=== PATIENT | female | born 1990 | race Caucasian/White ===

== ENCOUNTER 2018-06-04 12:55 | Emergency (ER) | payer OTHER ==
--- NOTE | 2018-06-04 13:29 | ER Report ---
History and Physical Time Seen By MD: 13:29 Hx. of Stated Complaint: vaginal bleeding HPI/ROS at 11 weeks by dates presents to the emergency department with 1 episode of spotting today. Also with one episode of cramping. Symptoms have resolved. No recent trauma or drug use. No fever chills. No previous ectopic. Allergies: Coded Allergies: No Known Allergies (Verified Allergy, Unknown, 06/04/18) Home Meds No Active Prescriptions or Reported Meds Constitutional Vital Sign - Last 24 Hours 06/04/18 06/04/18 06/04/18 06/04/18 12:55 13:03 13:06 13:15 Temp 98.8 Pulse 78 92 Resp 13 B/P (MAP) 119/78 (92) 119/78 90/75 (80) Pulse Ox 95 98 O2 Delivery Room Air 06/04/18 06/04/18 06/04/18 06/04/18 13:25 13:30 13:45 13:55 Pulse 77 85 B/P (MAP) 98/59 (72) 97/76 (83) Pulse Ox 96 98 06/04/18 06/04/18 06/04/18 06/04/18 14:00 14:15 14:30 14:35 Pulse 81 86 92 B/P (MAP) 99/73 (82) 97/61 (73) 94/68 (77) Pulse Ox 99 97 97 06/04/18 06/04/18 15:30 15:35 Pulse 114 B/P (MAP) 91/68 (76) Pulse Ox 100 Physical Exam General Appearance: The patient is alert, has no immediate need for airway protection and no current signs of toxicity. Eyes: Pupils equal and round no injection. Respiratory: Chest is non tender, lungs are clear to auscultation. Cardiac: regular rate and rhythm Gastrointestinal: Abdomen is soft and non tender, no masses, bowel sounds normal. : No blood in vaginal vault, OS closed Extremities have full range of motion and are non tender. Skin: No rashes or lesions. Medical Decision Making Data Points Result Diagram: 06/04/18 1341 06/04/18 1341 Laboratory Hematology Test 06/04/18 13:00 06/04/18 13:41 Urine Color Yellow Urine Clarity Clear Urine pH 5.0 pH (4.8-9.5) Urine Specific [place] 1.026 Urine Protein Negative mg/dL (NEGATIVE) Urine Glucose (UA) Negative mg/dL (NEGATIVE) Urine Ketones 20 mg/dL (NEGATIVE) Urine Blood Large (NEGATIVE) Urine Nitrite Negative (NEGATIVE) Urine Bilirubin Negative (NEGATIVE) Urine Urobilinogen Negative mg/dL (0.2-1.9) Urine Leukocyte Esterase Negative (NEGATIVE) Urine RBC 1 /HPF (0-2/HPF) Urine WBC 1 /HPF (0-5/HPF) Urine Squamous Epithelial Cells Moderate /LPF (</=FEW) Urine Bacteria Negative /HPF (NONE-FEW) Urine Mucus None /HPF (NONE-FEW) Urine HCG, Qualitative Positive (NEGATIVE) Red Blood Count 4.74 M/uL (4.17-5.56) Mean Corpuscular Volume 94.7 fL (80.0-96.0) Mean Corpuscular Hemoglobin 32.3 pg (26.0-33.0) Mean Corpuscular Hemoglobin Concent 34.2 g/dL (32.0-36.0) Red Cell Distribution Width 13.1 % (11.5-14.5) Mean Platelet Volume 8.3 fL (7.2-11.1) Neutrophils (%) (Auto) 70.0 % (39.4-72.5) Lymphocytes (%) (Auto) 22.0 % (17.6-49.6) Monocytes (%) (Auto) 5.7 % (4.1-12.4) Eosinophils (%) (Auto) 1.6 % (0.4-6.7) Basophils (%) (Auto) 0.7 % (0.3-1.4) Nucleated RBC Relative Count (auto) 0.0 /100WBC Neutrophils # (Auto) 6.9 K/uL (2.0-7.4) Lymphocytes # (Auto) 2.2 K/uL (1.3-3.6) Monocytes # (Auto) 0.6 K/uL (0.3-1.0) Eosinophils # (Auto) 0.2 K/uL (0.0-0.5) Basophils # (Auto) 0.1 K/uL (0.0-0.1) Nucleated RBC Absolute Count (auto) 0.00 K/uL Sodium Level 135 mmol/L (137-145) Potassium Level 3.3 mmol/L (3.5-5.0) Chloride Level 103 mmol/L (98-107) Carbon Dioxide Level 21 mmol/L (22-31) Blood Urea Nitrogen 15 mg/dl (7-18) Creatinine 0.60 mg/dl (0.52-1.04) Glomerular Filtration Rate Calc > 60.0 Random Glucose 120 mg/dl (75-110) Calcium Level 9.4 mg/dl (8.4-10.2) Total Bilirubin 0.3 mg/dl (0.2-1.3) Aspartate Amino Transf (AST/SGOT) 24 U/L (0-35) Alanine Aminotransferase (ALT/SGPT) 20 U/L (0-56) Alkaline Phosphatase 44 U/L (0-126) Total Protein 8.3 g/dl (6.3-8.2) Albumin 4.2 g/dl (3.5-5.0) Human Chorionic Gonadotropin, Quant 87439 mIU/ml Chemistry Test 06/04/18 13:00 06/04/18 13:41 Urine Color Yellow Urine Clarity Clear Urine pH 5.0 pH (4.8-9.5) Urine Specific [place] 1.026 Urine Protein Negative mg/dL (NEGATIVE) Urine Glucose (UA) Negative mg/dL (NEGATIVE) Urine Ketones 20 mg/dL (NEGATIVE) Urine Blood Large (NEGATIVE) Urine Nitrite Negative (NEGATIVE) Urine Bilirubin Negative (NEGATIVE) Urine Urobilinogen Negative mg/dL (0.2-1.9) Urine Leukocyte Esterase Negative (NEGATIVE) Urine RBC 1 /HPF (0-2/HPF) Urine WBC 1 /HPF (0-5/HPF) Urine Squamous Epithelial Cells Moderate /LPF (</=FEW) Urine Bacteria Negative /HPF (NONE-FEW) Urine Mucus None /HPF (NONE-FEW) Urine HCG, Qualitative Positive (NEGATIVE) White Blood Count 9.9 k/uL (4.5-11.0) Red Blood Count 4.74 M/uL (4.17-5.56) Hemoglobin 15.3 g/dL (12.0-16.0) Hematocrit 44.8 % (34.0-47.0) Mean Corpuscular Volume 94.7 fL (80.0-96.0) Mean Corpuscular Hemoglobin 32.3 pg (26.0-33.0) Mean Corpuscular Hemoglobin Concent 34.2 g/dL (32.0-36.0) Red Cell Distribution Width 13.1 % (11.5-14.5) Platelet Count 239 K/uL (150-450) Mean Platelet Volume 8.3 fL (7.2-11.1) Neutrophils (%) (Auto) 70.0 % (39.4-72.5) Lymphocytes (%) (Auto) 22.0 % (17.6-49.6) Monocytes (%) (Auto) 5.7 % (4.1-12.4) Eosinophils (%) (Auto) 1.6 % (0.4-6.7) Basophils (%) (Auto) 0.7 % (0.3-1.4) Nucleated RBC Relative Count (auto) 0.0 /100WBC Neutrophils # (Auto) 6.9 K/uL (2.0-7.4) Lymphocytes # (Auto) 2.2 K/uL (1.3-3.6) Monocytes # (Auto) 0.6 K/uL (0.3-1.0) Eosinophils # (Auto) 0.2 K/uL (0.0-0.5) Basophils # (Auto) 0.1 K/uL (0.0-0.1) Nucleated RBC Absolute Count (auto) 0.00 K/uL Glomerular Filtration Rate Calc > 60.0 Calcium Level 9.4 mg/dl (8.4-10.2) Total Bilirubin 0.3 mg/dl (0.2-1.3) Aspartate Amino Transf (AST/SGOT) 24 U/L (0-35) Alanine Aminotransferase (ALT/SGPT) 20 U/L (0-56) Alkaline Phosphatase 44 U/L (0-126) Total Protein 8.3 g/dl (6.3-8.2) Albumin 4.2 g/dl (3.5-5.0) Human Chorionic Gonadotropin, Quant 02328 mIU/ml Urinalysis Test 06/04/18 13:00 Urine Color Yellow Urine Clarity Clear Urine pH 5.0 pH (4.8-9.5) Urine Specific [place] 1.026 Urine Protein Negative mg/dL (NEGATIVE) Urine Glucose (UA) Negative mg/dL (NEGATIVE) Urine Ketones 20 mg/dL (NEGATIVE) Urine Blood Large (NEGATIVE) Urine Nitrite Negative (NEGATIVE) Urine Bilirubin Negative (NEGATIVE) Urine Urobilinogen Negative mg/dL (0.2-1.9) Urine Leukocyte Esterase Negative (NEGATIVE) Urine RBC 1 /HPF (0-2/HPF) Urine WBC 1 /HPF (0-5/HPF) Urine Squamous Epithelial Cells Moderate /LPF (</=FEW) Urine Bacteria Negative /HPF (NONE-FEW) Urine Mucus None /HPF (NONE-FEW) Urine HCG, Qualitative Positive (NEGATIVE) ED Course/Re-evaluation ED Course Small sub chorionic hemorrhage noted on US. IUP with good FHTs noted otherwise. Os closed. No blood in the vaginal vault. No pain. Precautions given as to pelvic rest. Patient will follow-up with Dr. Katz this coming Monday. Decision to Disposition Date: Jun 04, 2018 Decision to Disposition Time: 16:02 Depart Departure Latest Vital Signs Vital Signs Date Time Temp Pulse Resp B/P (MAP) Pulse Ox O2 Delivery O2 Flow Rate FiO2 06/04/18 15:35 114 100 06/04/18 15:30 91/68 (76) 06/04/18 13:06 98.8 13 Room Air Impression: Primary Impression: Threatened miscarriage Condition: Improved Disposition: HOME OR SELF-CARE New Scripts No Active Prescriptions or Reported Meds Patient Instructions: Threatened Miscarriage (ED) MOE CRAIG MD Jun 04, 2018 13:29
[2018-06-04] MEDS ORDERED: NS(*) 0.9% 1000 ML BAG 1,000 ML IV ONE (13:40)
[2018-06-04 13:50] LABS: PLATELET COUNT, AUTOMATED 239 K/uL (150-450)
[2018-06-04 15:30] VITALS: BP 91/68
--- NOTE | 2018-06-04 15:57 | RADIOLOGY IMAGING REPORT ---
FACILITY: [facility] PATIENT NAME: Hannah Amador : 1990 MR: [id number] V: [id number] EXAM DATE: ORDERING PHYSICIAN: MOE CRAIG TECHNOLOGIST: [place] [facility] [place]: Hannah Amador : 1990 Visit/Account:[id number] Date of Sevice: 06/04/2018 EXAMINATION: Transvaginal first trimester OB ultrasound HISTORY: Vaginal bleeding. COMPARISON: None. LMP: 03/19/2018, 11 weeks and 0 days. JOE by LMP: 12/24/2018. FINDINGS: Exam is positive for a single live intrauterine . A gestational sac, yolk sac, and po le are visualized. [place]-rump length measures 4.13 cm, corresponding with a gestational age of 11 we eks and 1 day. cardiac activity is visualized at 165 bpm. Small sliver of subchorionic hemorrhage along the inferior margin of the gestational sac, measuring a pproximately 1.6 x 0.9 cm. Normal size and appearance of both ovaries. The right ovary measures 2.5 x 2.2 x 1.2 cm; the left ova ry 2.7 x 2.5 x 1.9 cm. Both ovaries demonstrate normal vascularity with Doppler. No abnormal adnexal mass is visualized. No free fluid in the pelvis. IMPRESSION: 1. Single live intrauterine . 2. [place]-rump length corresponds with a gestational age of 11 weeks and 1 day, which correlates well with the reported LMP. 3. heart rate 165 bpm. 4. Small sliver of subchorionic hemorrhage along the inferior margin of the gestational sac. 5. Unremarkable adnexa. No free fluid in the pelvis. Report Dictated By: Obdulio Pitt MD at 06/04/2018 3:49 PM Report E-Signed By: Obdulio Pitt MD at 06/04/2018 3:52 PM WSN:[email or web address]
== END 2018-06-04 16:11 | disposition home or self-care (01) ==
LOC: ER 13:38
DX: O20.0 Threatened abortion (principal); Z3A.11 11 weeks gestation of pregnancy
CPT/HCPCS: 76817; 81001; 81025; 84702; 85025; 86900; 86901; 96360; 99284; J7030; 82040; 82247; 82310; 82374; 82435; 82565; 82947; 84075; 84132; 84155; 84295; 84450; 84460; 84520

== ENCOUNTER → 2018-06-08 | Outpatient (CLI) | payer OTHER ==
[~2018-06-08] MED LIST: CALC-515 PO; DIPH-740 PO; PREN-127 PO
[2018-06-08 11:01] LABS: PLATELET COUNT, AUTOMATED 233 K/uL (150-450)
== END ==
LOC: LAB 08:04
PROVIDERS: ATTEND Obstetrics & Gynecology
DX: Z34.91 Encounter for supervision of normal pregnancy, unspecified, first trimester (principal)
CPT/HCPCS: 36415; 81001; 85025; 86592; 86703; 86762; 86850; 86900; 86901; 87088; 87340

== ENCOUNTER → 2018-06-21 | Outpatient (CLI) | payer OTHER | LOC: LAB 08:08 | PROVIDERS: ATTEND Student in an Organized Health Care Education/Training Program | DX: Z34.91 Encounter for supervision of normal pregnancy, unspecified, first trimester (principal) | CPT/HCPCS: 87491; 87591 ==

== ENCOUNTER → 2018-08-09 | Outpatient (CLI) | payer OTHER ==
--- NOTE | 2018-08-09 09:32 | RADIOLOGY IMAGING REPORT ---
FACILITY: [facility] PATIENT NAME: Hannah Amador : 1990 MR: [id number] V: [id number] EXAM DATE: ORDERING PHYSICIAN: VINITA FARR TECHNOLOGIST: Location: [facility] Patient: Hannah Amador : 1990 Visit/Account:[id number] Date of Sevice: 08/09/2018 [facility] [place] ANATOMICAL SURVEY HISTORY: anatomical COMPARISON: None FINDINGS: Intrauterine gestations: 1 presentation: Breech heart rate: 153 bpm Amniotic fluid volume: ZHANNA 16.5 cm; Largest amniotic fluid pocket 5.5 cm Placenta: Anterior right lateral No placenta previa or retroplacental hemorrhage. Uterus: Gravid, otherwise normal Maternal adnexa: Negative Cervix: 3.1. Closed Gestational Parameters: BPD: 4.9 cm; 21 weeks/ 0 days 70% HC: 17.5 cm; 20 weeks/ 1 days 25% AC: 16.6 cm; 21 weeks/ 5 days 81% FL: 3.4 cm; 20 weeks/ 6 days 55% Average ultrasound age (AUA): 21 weeks/ 0 days Estimated weight (EFW): 401 grams +/- 59 grams. Fetus is in the 82nd percentile based on LMP Anatomic Survey: Intracranial structures, 4-chamber heart, stomach, kidneys, urinary bladder, spine, 3-vessel cord and cord insertion are unremarkable. Two upper and two lower extremities visualized. IMPRESSION: IUP of 21 weeks zero days. JOE of 12/20/2018. This correlates four days ahead of the LMP JOE of 019 Report Dictated By: Brandt Covarrubias MD at 08/09/2018 9:18 AM Report E-Signed By: Brandt Covarrubias MD at 08/09/2018 9:27 AM WSN:[email or web address]
== END ==
LOC: RAD 07:49
PROVIDERS: ATTEND Student in an Organized Health Care Education/Training Program
DX: Z02.9 Encounter for administrative examinations, unspecified (principal)

== ENCOUNTER → 2018-10-01 | Outpatient (CLI) | payer OTHER ==
[~2018-10-01] MED LIST changes: +OSE75 PO
[2018-10-01 10:17] LABS: PLATELET COUNT, AUTOMATED 190 K/uL (150-450)
== END ==
LOC: LAB 07:53
PROVIDERS: ATTEND Student in an Organized Health Care Education/Training Program
DX: Z34.92 Encounter for supervision of normal pregnancy, unspecified, second trimester (principal)
CPT/HCPCS: 36415; 82950; 85025

== ENCOUNTER → 2018-10-05 | Outpatient (CLI) | payer OTHER | LOC: LAB 08:27 | PROVIDERS: ATTEND Student in an Organized Health Care Education/Training Program | DX: O99.810 Abnormal glucose complicating pregnancy (principal) | CPT/HCPCS: 36415; 82951; 82952 ==

== ENCOUNTER → 2018-11-29 | Outpatient (CLI) | payer OTHER ==
[~2018-11-29] MED LIST changes: +DIPH0.5S2 IM
== END ==
LOC: LAB 09:16
PROVIDERS: ATTEND Student in an Organized Health Care Education/Training Program
DX: Z36.85 Encounter for antenatal screening for Streptococcus B (principal)
CPT/HCPCS: 87081

== ENCOUNTER 2018-12-15 09:47 | Inpatient (IN) | payer OTHER ==
[~2018-12-15] VITALS: Ht 162.6 cm; Wt 86.2 kg
[2018-12-15 10:00] VITALS: BP 146/79; Ht 162.6 cm; Wt 86.2 kg
[2018-12-15] MEDS ORDERED: FAMOTIDINE(*) 20MG/50ML PREMIX 50 ML IVPB PRN (11:06)
[2018-12-15] MEDS ORDERED: OXYTOCIN 30 UNIT/NS 500 ML 500 ML IV PRN ×3 (11:06→11:18)
[2018-12-15] MEDS ORDERED: LIDOCAINE/SOD BICARB 8.4% SYR SC PRN (11:10)
[2018-12-15] MEDS ORDERED: METOCLOPRAMIDE 10 MG/2 ML SDV IVP PRN (11:10)
[2018-12-15] MEDS ORDERED: LIDOCAINE 1% LOCAL 300 MG/30ML INJ PRN (11:10)
[2018-12-15] MEDS ORDERED: FLUSH 10 ML SYR IVP PRN (11:10)
[2018-12-15] MEDS ORDERED: FENTANYL/ROPIVACAINE 100 ML BAG EPI PRN (11:15)
[2018-12-15] MEDS ORDERED: LIDOCAINE/PF 2% 200MG/10ML AMP 200 MG/10 ML AMPUL EPI PRN (11:15)
[2018-12-15] MEDS ORDERED: BUPIVACAINE 0.5% INJ 30ML VIAL EPI PRN (11:15)
[2018-12-15] MEDS ORDERED: fentaNYL CITR 100 MCG/2 ML AMP IT PRN (11:15)
[2018-12-15] MEDS ORDERED: BUPIVACAINE 0.25% MPF INJ EPI PRN (11:15)
[2018-12-15] MEDS ORDERED: LIDO/EPI 2% MPF 1:200,000 20ML EPI PRN (11:15)
[2018-12-15 12:00] LABS: PLATELET COUNT, AUTOMATED 133 K/uL (150-450)
[2018-12-15] MEDS: LR(*) 1000 ML BAG 1,000 ML IV SCH ×3 (12:22→22:34)
[2018-12-15] MEDS ORDERED: ONDANSETRON 4 MG/2 ML VIAL ONE (20:27)
[2018-12-15] MEDS ORDERED: ePHEDrine 25 MG/5 ML DISP.SYR IVP ONE (20:28)
[2018-12-15] MEDS ORDERED: ONDANSETRON 4 MG/2 ML VIAL IVP PRN (21:11)
[2018-12-15] MEDS ORDERED: ACETAMINOPHEN 500 MG TAB PO PRN (21:11)
--- NOTE | 2018-12-15 21:16 | Anesthesia OB Pre-Anes Eval ---
History of Present Illness Anesthesia Start Date: Dec 15, 2018 Anesthesia Start Time: 20:33 OB Anesthesia Diagnosis: spontaneous labor EDC: Dec 24, 2018 : 1 Para: 0 Vital Signs: Vital Signs Date Time Temp Pulse Resp B/P (MAP) Pulse Ox O2 Delivery O2 Flow Rate FiO2 12/15/18 10:00 99.9 92 18 146/79 (101) 95 Room Air Pain Ratin Result Diagram: 12/15/18 1143 Height (Inches): 64.00 Weight (Pounds): 190 Past Medical History Medical History: other (Hx of opioid addiction/abuse.) Surgical History: no surgical history Attended Childbirth Classes?: No Hx Anesthesia Reactions: No Hx Family Anesthesia Reaction: No Current Medications: pitocin Home Meds Reported Medications Calcium Carbonate (TUMS) 200 Mg Tab.chew, 200 MG PO, TAB.CHEW 06/08/18 Vits W-Ca,Fe,Fa(<1MG) ( VITAMINS) 1 Each Tablet, 1 EACH PO DAILY, TAB 06/08/18 Allergies: Coded Allergies: No Known Allergies (Verified Allergy, Unknown, 06/04/18) Anesthesia OB ROS Neurological: No migraines/headaches, No seizures, No neuropathy, No other ENT: Denies Tooth caps, Denies Loose teeth, Denies Chipped teeth, Denies Dentures, Denies Bridges, Denies Retainers, Denies Veneers, Denies Implants, Denies Tongue ring, Denies Other Pulmonary: No asthma, No smoker (pks/day/yrs), No other Airway Class: ll Cardiovascular ROS: No edema, No arrhythmia, No other GI ROS: clear liquids ROS: No Herpes, No STD(s), No Liver Disease, No Renal Disease, No Other Endocrine ROS: No diabetes, No gestational diabetes, No thyroid disorder, No other Musculoskeletal ROS: No low back pain, No low back injury, No scoliosis, No other ASA Classification: 2 Assessment and Plan Anesthesia Plan: DENISE STOCK CRNA Dec 15, 2018 21:16
--- NOTE | 2018-12-15 21:18 | Procedure Note ---
Anesthetic Placement Note Anesthesia Plan: LEB Permit for Anesthesia Signed: Yes Anesthesia Technique: Patient Sitting Anesthesia Prep: Chlorhexidine Interspace: L 4-5 Local Anesthetic: 1% Lidocaine, 25 Gauge Needle Amount Local - cc's: 5 Anesthesia Needle: 17g Touhy/Schliff Anesthesia Attempts: 1 Loss of Resistance: Normal Saline Depth of EDER (cm): 6 Epidural Needle Placement: No CSF, No Blood, No Parasthesia Catheter Insertion (cm): 5 Catheter Type: Quintero - Spring Wound Epidural Dressing: Tegaderm, Tape Anesthesia Tray: Lot Number ([id number]), Expiration Date (12/17/2019), Reference Number ([id number]) Anesthesia Medications: Epidural Test Dose: 1.5 Lido/Epi (1:200,000), Dose - mL (5 mL incrementally), Time (2053), Negative Epidural Loading Dose: 0.2% Ropivicaine, Dose - ml (6), Time (2103) Epidural Infusion: 0.2% Ropivicaine, Start Time: (2103) Epidural Pump Setting: Bolus Dose - mL (6), Lockout - Minutes (20), Maintenance Rate - mL/hr (8), Maximum per Hour - mL (24) Complications: None DENISE RAMSEY CRNA Dec 15, 2018 21:18
--- NOTE | 2018-12-15 21:54 | Anesthesia Progress Note ---
Progress/Maintenance Anesthesia Note Date: Dec 15, 2018 Anesthesia Note Time: 21:45 Pain Intensity: 5 Pump: On Pump Rate (ML/HR): 10 Motor Level: Bending Knees-Bilateral Position: Right, Tilt Drug Bolus: 0.25% Marcaine (7 mL) Assessment and Plan Anesthesia Plan: DENISE STOCK CRNA Dec 15, 2018 21:53
[2018-12-15] MEDS ORDERED: OXYTOCIN 10 UNIT/ML SDV ONE (22:07)
--- NOTE | 2018-12-15 22:15 | Anesthesia Progress Note ---
Progress/Maintenance Anesthesia Note Date: Dec 15, 2018 Anesthesia Note Time: 22:00 Pain Intensity: 5 Pump: On Pump Rate (ML/HR): 12 Motor Level: Bending Knees-Bilateral Dilatation: 6 Drug Bolus: Other (2% Lidocaine + 1:200k epi 7 mL bolus.) DENISE RAMSEY CRNA Dec 15, 2018 22:15
--- NOTE | 2018-12-15 23:35 | Procedure Note ---
Anesthetic Placement Note Anesthesia Plan: LEB Permit for Anesthesia Signed: Yes Anesthesia Technique: Patient Sitting Anesthesia Prep: Chlorhexidine Interspace: L 3-4 Local Anesthetic: 1% Lidocaine, 25 Gauge Needle Amount Local - cc's: 5 Anesthesia Needle: 17g Touhy/Schliff Anesthesia Attempts: 3 (last attempt with hand held U/S device. Interspinous space viewed as shifted to the left from apparent midline. Epidural space m easured at 7.5 cm with u/s) Loss of Resistance: Normal Saline Depth of EDER (cm): 7.5 Epidural Needle Placement: No CSF, No Blood, No Parasthesia Catheter Insertion (cm): 5 Catheter Type: Quintero - Spring Wound Epidural Dressing: Tegaderm, Tape Anesthesia Tray: Lot Number ([id number]), Expiration Date (12/17/2019), Reference Number ([id number]) Anesthesia Medications: Epidural Test Dose: 1.5 Lido/Epi (1:200,000), Dose - mL (5 mL incrementally), Time (1110), Negative Epidural Loading Dose: 0.25% Marcaine, Dose - ml (6), Time (1121) Epidural Infusion: 0.2% Ropivicaine, Start Time: (1121) Epidural Pump Setting: Bolus Dose - mL (5), Lockout - Minutes (20), Maintenance Rate - mL/hr (10), Maximum per Hour - mL (25) Complications: None DENISE RAMSEY CRNA Dec 15, 2018 23:35
--- NOTE | 2018-12-15 23:38 | Anesthesia Progress Note ---
Progress/Maintenance Anesthesia Note Date: Dec 15, 2018 Anesthesia Note Time: 22:35 Pain Intensity: 6 Assessment and Plan Anesthesia Plan: LEB Assessment: No appreciable dermatomal level noted upon exam. Patient requests epidural replacement. When catheter was removed, it was found to be kinked near the distal end. It was therefore likely not fully in the epidural space. Epidural Catheter Removal: Removed Catheter Intact, Yes, Removed by: (Denise Ramsey CRNA) Removal Date: Dec 15, 2018 Removal Time: 22:40 DENISE RAMSEY CRNA Dec 15, 2018 23:38
[2018-12-16] VITALS (7 sets, daily range): BP systolic 113–132; BP diastolic 58–96
--- NOTE | 2018-12-16 00:52 | Anesthesia Progress Note ---
Progress/Maintenance Anesthesia Note Date: Dec 16, 2018 Anesthesia Note Time: 12:48 Pain Intensity: 0 Pump: On Pump Rate (ML/HR): 10 Motor Level: Bending Knees-Bilateral Dilatation: 10 Position: Left, Tilt Assessment and Plan Anesthesia Plan: LEB Assessment: Patient comfortable and complete dilation. DENISE RAMSEY CRNA Dec 16, 2018 00:52
--- NOTE | 2018-12-16 04:52 | History & Physical ---
History of Present Illness Age of Patient: 28 : 1 Para or TPAL: 0 EDC per LMP: Dec 24, 2018 Estimated Gestational Age: 38.6 Chief Complaint My water broke. History of Present Illness 28 y/o @ 38-6/7 wga who presents to L&D with a chief complaint of "My water broke." Pt states water broke around 0500 of 12/15/18. Reports clear amniotic fluid that continues to leak. Pt denies any fever or chills. Good movement. No vaginal bleeding. History Patient's Blood Type: O Positive Rubella Status: Immune Group B Strep Screen: Negative Obstetrical History: Past Medical History: Recovering Opiate addict: Does not want any opiate medications. Allergies: Coded Allergies: No Known Allergies (Verified Allergy, Unknown, 06/04/18) Social History: Denies Tobacco/etoh/rec drugs Family History: FH: breast cancer MOTHER PGM FH: depression MOTHER Med Rec Home Meds Reported Medications Calcium Carbonate (TUMS) 200 Mg Tab.chew, 200 MG PO, TAB.CHEW 06/08/18 Vits W-Ca,Fe,Fa(<1MG) ( VITAMINS) 1 Each Tablet, 1 EACH PO DAILY, TAB 06/08/18 Review of Systems All Systems Reviewed/Normal: Yes, Except as Noted Constitutional: No Fever, No Weight Loss, No Weight Gain, No Chills, No Night Sweats, No Other Neurological: No Syncope, No Confusion, No Weakness, No Dizziness, No Slurred Speech, No Other Eyes: No Vision Change, No Loss of Vision, No Photophobia, No Other ENT: No Hearing Loss, No Sinus Congestion, No Sore Throat, No Ear Ache, No Tinnitus, No Other Cardiovascular: No Chest Pain, No Palpitations, No Orthostatic Hypotension, No Other Respiratory: No Shortness of Breath, No Cough, No Wheezing, No Other Gastrointestinal: No Nausea, No Vomiting, No Diarrhea, No Dysphagia, No Constipation, No Early Satiety, No Hematemesis, No Hematochezia, No Melena, No Abdominal Pain, No Other Genitourinary: No Dysuria, No Hematuria, No Urinary Incontinence, No Other Musculoskeletal: No Pain, No Sprain, No Strain, No Impaired Mobility, No Other Psychiatric: No Depression, No Anxiety, No Other Exam General Exam Vital Signs Vital Signs Date Time Temp Pulse Resp B/P (MAP) Pulse Ox O2 Delivery O2 Flow Rate FiO2 12/15/18 10:00 99.9 92 18 146/79 (101) 95 Room Air General Apperance: Alert/Awake/No Acute Distress Neuro: No Gross deficits Eyes: Normal Extraocular Movement & Vison, PERRLA ENT: Normal Cardiovascular: Regular Rate and Rhythm Respiratory: No Respiratory Distress, Clear to Auscultation Abdomen: Soft, Non-Tender, Non-Distended : Normal Musculoskeletal: No Weakness/Pain Extremities: No Cyanosis,Clubbing or Edema Integumentary: Skin Intact without Lesions or Rash Psychological: Alert & Oriented X3, Appropriate Mood & Affect Vaginal Discharge/Fluid?: Clear Fluid Cervical Dialation: 2 Cervical Effacement (%): 50 Cervical Consistency: Soft Cervical Position: Anterior Station: -2 Presentation: Vertex Uterine Contractions(Q min): 5 Uterine Contraction Strength: Moderate Fetus Feeling Movement?: Yes Heart Tones: 140 Heart Tone Variabilty: Moderate FHT Accelerations: Present FHT Decelerations: None FHT Category: I Medical Decision Making Data Points Result Diagram: 12/15/18 1143 Pre-Admit Course Medical Record Review: Yes VTE Prophylasis: Adult Deep Vein Thrombosis/Pulmonary: No Assessment and Plan RETAIL DIRECTOR Assessment: Stable RETAIL DIRECTOR Plan: Routine Labor/Induct Care Problems: (1) 38 weeks gestation of (2) PROM with onset of labor within 24 hours of rupture Assessment & Plan: Pt was admitted to L&D on 12/15/18 at 2 cm. She was started on oxytocin and progressed to complete. Did require 30 mU/min of oxytocin. (3) Gestational hypertension w/o significant proteinuria in 3rd trimester Problem Qualifiers (1) PROM with onset of labor within 24 hours of rupture: PROM gestational age: full term Qualified Codes: O42.02 - Full-term premature rupture of membranes, onset of labor within 24 hours of rupture VINITA FARR DO Dec 16, 2018 04:52
--- NOTE | 2018-12-16 04:59 | OB Delivery Note ---
Delivery Note Vaginal Delivery Type: Spont. Vaginal Delivery Delivery Date: Dec 16, 2018 Delivery Time: 04:06 Estimated Gestational Age(wks): 38.6 Length of Labor Stage I (hrs): 20 Length of Labor Stage II (hrs): 3.5 Labor Stage III (minutes): 7 Delivery Anesthesia: Epidural Sex: Male Weight (gms): 3070 (6#12oz) Apgars: 1 Minute (9), 5 Minute (9) Repair Needed: 2nd Degree Estimated Blood Loss: 500 Outsole Compressor in Attendence: VINITA Zhong DO Dec 16, 2018 04:59
[2018-12-16] MEDS ORDERED: MEASLES,MUMP,RUBELLA VAC 0.5ML SUBQ ONE (05:00)
[2018-12-16] MEDS ORDERED: GLYCERIN/WITCH HAZEL LEAF 1 PK TP PRN (05:00)
[2018-12-16] MEDS ORDERED: HYDROCORTISONE 2.5% CR 30GM TB PR PRN (05:00)
[2018-12-16] MEDS ORDERED: BENZOCAINE 20% 60 ML BTL TP PRN (05:00)
[2018-12-16] MEDS ORDERED: INFLUENZA VIRUS VAC 0.5ML SYR IM ONLY ONE (05:00)
[2018-12-16] MEDS ORDERED: DIPHTH/TETANUS/ACEL. PERTUSSIS IM ONLY ONE (05:00)
[2018-12-16] MEDS ORDERED: MAGNESIUM HYDROXIDE* 30ML UDCP PO PRN (05:00)
[2018-12-16] MEDS: LANOLIN OINT 7 GM TUBE TP PRN (05:20)
--- NOTE | 2018-12-16 05:38 | DELIVERY NOTE ---
DELIVERY DATE: December 16, 2018 SURGEON: Stephen Weiss DO ANESTHESIA: Epidural. PREOPERATIVE DIAGNOSES 1. A 28-year-old 1, para 0, at 38-6/7 weeks' gestation. 2. Premature rupture of membranes. POSTOPERATIVE DIAGNOSES 1. A 28-year-old 1, para 0, at 38-6/7 weeks' gestation. 2. Premature rupture of membranes. 3. Delivered. PROCEDURE Spontaneous vaginal delivery with repair of second-degree midline laceration. FINDINGS Live-born male infant at 0406 of 12/16/2018 with Apgars of 9 and 9, with weight 3070 gm, 6#12oz, over a second-degree midline laceration. Three-vessel cord, intact placenta. ESTIMATED BLOOD LOSS 500 mL. PATHOLOGY None. COMPLICATIONS None known. CONDITION Stable x2. Mother and infant to remain in LDRP. COUNTS Correct for all needles, sponges and instruments. HOSPITAL SUMMARY/LABOR SUMMARY A 28-year-old 1, para 0, who presented at 38-5/7 weeks' gestation with a chief complaint of "My water broke." Patient was noted to be grossly ruptured and dilated 2 cm. She was started on oxytocin, and oxytocin was increased until patient began dee roughly every two minutes. During this time, heart rate remained category 1. Patient did initially make slow cervical change, but she did progress and eventually did get uncomfortable enough to request an epidural. Once epidural was given, the patient had a Puente catheter placed and quickly made cervical change from 6 cm to complete. Patient was allowed to labor down for approximately two hours secondary to her history of opiate recovery. The labor-down process was the idea to minimize patient's pushing and decrease her risk of delivery. After approximately two hours of laboring down, nursing staff coached the patient on pushing, and she was pushing for approximately an hour and a half. With good crown of the noted, the delivery team was called and assembled. DELIVERY SUMMARY Patient was placed in dorsal lithotomy position. She was prepped and draped in the usual sterile manner. Upon maternal pushing, the infant's head delivered in controlled manner, followed by the anterior shoulders with gentle downward motion, the posterior shoulders were gentle upward motion. The remainder of the infant's body delivered spontaneously. Mouth and nose were bulb-suctioned. The cord was clamped x2 and cut by the 's father after approximately 2-1/2 hours post delivery. Patient then had the baby placed on the maternal abdomen, where it was vigorously cleaned and dried. Next, cord blood gas was obtained and the placenta delivered spontaneously with gentle cord traction. Oxytocin was infused to help with uterine tone. Uterus was massaged and deemed firm. Next, upon inspection of the perineum, vagina, cervix, and labia, it was noted that there was a second-degree midline laceration. This was repaired with a 3-0 Vicryl in the usual manner, with the laceration complete. It was inspected and found to be hemostatic. At this point, the patient was cleaned, labor bed was reassembled, and the mother and were allowed to continue to metcalf. FAMILIA
[2018-12-16] MEDS ORDERED: BUPIV/EPI 0.25% 1:200,000 50ML INFIL ONE (06:25)
[2018-12-16] MEDS ORDERED: DOCUSATE CALCIUM 240 MG CAP PO SCH (09:00)
[2018-12-16] MEDS ORDERED: IBUPROFEN 800 MG TAB PO SCH ×2 (09:00→13:20)
[2018-12-16] MEDS ORDERED: ACETAMINOPHEN 325 MG TAB PO SCH (09:00)
[2018-12-16] MEDS: DOCUSATE SOD LIQ 100 MG/10 ML UDC PO SCH ×2 (09:17→21:45)
--- NOTE | 2018-12-16 11:14 | Anesthesia Post Eval Note ---
Anesthesia Post Eval Note Vital Signs Date Time Temp Pulse Resp B/P (MAP) Pulse Ox O2 Delivery O2 Flow Rate FiO2 12/16/18 07:17 97.8 97 16 125/60 (81) 12/16/18 06:30 94 Room Air Pt able to participate in Eval: Yes Cardiovascular Status: Satisfactory Respiratory Status: Satisfactory Pain Managment: Satisfactory PO Nausea/Vomiting: Satisfactory Temperature Management: Satisfactory Mental Status: Satisfactory, Alert, Oriented X3 Post-Op Hydration Status: Satisfactory, Tolerating PO Well, Voiding w/o Difficulty Anesthesia Type: LEB Anesthesia Tolerance: No anesthesia complications noted. DENISE RAMSEY CRNA Dec 16, 2018 11:14
[2018-12-16] MEDS ORDERED: IBUPROFEN 100 MG/5 ML UDCUP PO SCH (13:00)
[2018-12-16] MEDS ORDERED: ACETAMINOPHEN 160 MG/5 ML UDC PO SCH (17:00)
[2018-12-16] MEDS: ACETAMINOPHEN 160 MG/5 ML UDC PO SCH (17:01)
[2018-12-16] MEDS: IBUPROFEN 100 MG/5 ML UDCUP PO SCH (21:45)
[2018-12-17] MEDS: ACETAMINOPHEN 160 MG/5 ML UDC PO SCH ×2 (01:15→10:25)
[2018-12-17 03:50] VITALS: BP 120/72
[2018-12-17] MEDS: IBUPROFEN 100 MG/5 ML UDCUP PO SCH (05:06)
--- NOTE | 2018-12-17 07:47 | Anesthesia Post Eval Note ---
Anesthesia Post Eval Note Vital Signs Date Time Temp Pulse Resp B/P (MAP) Pulse Ox O2 Delivery O2 Flow Rate FiO2 12/17/18 03:50 98.1 95 20 120/72 (88) 12/16/18 19:38 93 Room Air Pt able to participate in Eval: Yes Cardiovascular Status: Satisfactory Respiratory Status: Satisfactory Pain Managment: Satisfactory PO Nausea/Vomiting: Satisfactory Temperature Management: Satisfactory Mental Status: Satisfactory, Alert, Oriented X3 Post-Op Hydration Status: Satisfactory Anesthesia Type: LEB Anesthesia Tolerance: Signs of infection reviewed. Some bruising under skin at stick sites. No redness swelling or drainage at site. Pt. and father of baby agree to seek medical cintervention for persistent GUERRA or signs of infection. CIERRA MANCIA REMOTE SENSING ANALYST Dec 17, 2018 07:47
[2018-12-17 08:05] VITALS: BP 115/66
--- NOTE | 2018-12-17 09:11 | OB/GYN Progress Note ---
OB Subjective Progress Notes Subjective Doing good PPD #1. Tolerating regular diet. Ambulatory in room and archer. Voiding with out any difficulty. with minimal difficulty. Lochia appropriate. GI: NEG Nausea, NEG Vomiting, NEG Flatus, NEG Bowel Movement : Voiding Well, Vaginal Bleeding, Moderate Pain: Mild, Tolerating PO Pain Meds (Ibuprofen/tylenol) Neurological: No Headache, No Other Eyes: No Visual Disturbances OB Objective Physical Exam Vital Signs Date Time Temp Pulse Resp B/P (MAP) Pulse Ox O2 Delivery O2 Flow Rate FiO2 12/17/18 08:05 98.3 76 16 115/66 (82) Room Air 12/16/18 19:38 93 Intake and Output 12/17/18 07:02 Intake Total 500 ml Output Total 1000 ml Balance -500 ml Intake IV Total 500 ml Output Urine Total 1000 ml # Voids 2 General Appearance: Alert/Awake/No Acute Distress Neurological: No Gross deficits Eyes: Normal Extraocular Movement & Vison, PERRLA Respiratory: No Respiratory Distress, Clear to Auscultation Abdomen: Fundus Firm Extremities: No Cyanosis,Clubbing or Edema Integumentary: Skin Intact without Lesions or Rash Psychological: Alert & Oriented X3, Appropriate Mood & Affect Result Diagram: 12/17/18 0600 Assessment and 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 (3) Gestational hypertension w/o significant proteinuria in 3rd trimester Problem Qualifiers (1) PROM with onset of labor within 24 hours of rupture: PROM gestational age: full term Qualified Codes: O42.02 - Full-term premature rupture of membranes, onset of labor within 24 hours of rupture VINITA FARR DO Dec 17, 2018 09:11
--- NOTE | 2018-12-17 09:14 | OB/GYN Discharge Summary ---
Discharge Summary Reason for Hosp/Final Diag: (1) 38 weeks gestation of (2) PROM with onset of labor within 24 hours of rupture Hospital Course & Plan: Pt presented with PROM. Received oxytocin and progressed to complete and plus 1. Delivered a live born male with out any difficulty. Pt remained in the hospital for 1 day post . Was tolerating PO intake and meeting post goals. (3) Gestational hypertension w/o significant proteinuria in 3rd trimester Lates Vital Signs Vital Signs Date Time Temp Pulse Resp B/P (MAP) Pulse Ox O2 Delivery O2 Flow Rate FiO2 12/17/18 08:05 98.3 76 16 115/66 (82) Room Air 12/16/18 19:38 93 Weight (Pounds): 190 Result Diagram: 12/17/18 0600 Condition: Improved Discharge: Home Home Meds Reported Medications Calcium Carbonate (TUMS) 200 Mg Tab.chew, 200 MG PO, TAB.CHEW 06/08/18 Vits W-Ca,Fe,Fa(<1MG) ( VITAMINS) 1 Each Tablet, 1 EACH PO DAILY, TAB 06/08/18 Follow up with: [facility] [phone], Dr. Weiss [phone] Problem Qualifiers (1) PROM with onset of labor within 24 hours of rupture: PROM gestational age: full term Qualified Codes: O42.02 - Full-term premature rupture of membranes, onset of labor within 24 hours of rupture VINITA WEISS DO Dec 17, 2018 09:14
[2018-12-17] MEDS: DOCUSATE SOD LIQ 100 MG/10 ML UDC PO SCH (10:24)
[2018-12-17] MEDS: LANOLIN OINT 7 GM TUBE TP PRN (12:28)
== END 2018-12-17 14:30 | disposition home or self-care (01) | DRG 807 ==
LOC: OBSVTOIN 09:47 → OB 09:47
PROVIDERS: ADMIT Student in an Organized Health Care Education/Training Program; ATTEND Student in an Organized Health Care Education/Training Program
PROC: 10E0XZZ Delivery of Products of Conception, External Approach (ICD-10-PCS; principal; 2018-12-16)
PROC: 0KQM0ZZ Repair Perineum Muscle, Open Approach (ICD-10-PCS; 2018-12-16)
DX: O42.02 Full-term premature rupture of membranes, onset of labor within 24 hours of rupture (principal); Z37.0 Single live birth; O13.4 Gestational [pregnancy-induced] hypertension without significant proteinuria, complicating childbirth; O70.1 Second degree perineal laceration during delivery; Z3A.38 38 weeks gestation of pregnancy
CPT/HCPCS: 36415; 85025; 85027; 86850; 86900; 86901; J2405; J2590; J7120